=== PATIENT | male | born 1960 | race Caucasian/White ===

== ENCOUNTER 2018-05-22 17:06 | Emergency (ER) | payer BC ==
--- NOTE | 2018-05-22 17:16 | EDPHY ---
HPI/HX/ROS/PE/MDM Narrative: CHIEF COMPLAINT: Stroke alert HPI: The patient is a 58-year-old male who arrives by emergent ambulance as a stroke alert. Per paramedics, the patient was rock climbing when he suffered a minor fall. Following this fall, his [employer] noted that he had a left- sided facial droop and possibly some left upper extremity weakness. Ambulance was called. Symptoms began at 4:00 p.m.. No other injuries noted. REVIEW OF SYSTEMS: Aside from elements discussed in the HPI, a comprehensive 10-point review of systems was reviewed and is negative. PMH: No history of stroke, traumatic brain injury or known cardiac disease. SOCIAL HISTORY: Denies alcohol or drug abuse. PHYSICAL EXAM: General:Patient is alert, in no acute distress. ENT:Eyes are normal to inspection. ENT inspection normal. Neck: Normal inspection. Full range of motion. Respiratory:No respiratory distress. Breath sounds normal bilaterally. Cardiovascular: Regular rate and rhythm. Strong peripheral pulses. Normal cap refill. Abdomen:The abdomen is nontender to palpation. There are no peritoneal signs. There are normal bowel sounds. Back: Normal to inspection. No tenderness to palpation. Skin: Normal color. No rash. Warm and dry. Extremities: Normal appearance. Full range of motion. Neuro: Oriented x3. Left-sided facial droop. Mild pronator drift on left. Primary weakness is in hand. Able to raise left arm up against gravity. ED Course: 1724: [facility] has been consulted but has not yet beamed in. CT non con was read by Dr. Nicole as negative for bleed. Positive for subacute posterior right frontal encephalomalacia possibly due to ischemia. 1726: EKG shows normal sinus rhythm, no acute ST changes. 1730: Dr. Pike from [facility] now on robot. 1738: Dr. Pike has examined patient and she recommends IV tPA now followed by CTA. She discussed risks and benefits of tPA with patient and family separately but I reviewed this with them, as well as risk of potentially life- threatening intracranial bleeding, and patient and family would like to continue with tPA plan. tPA ordered and being mixed. 1820: I was notified by Dr. Nicole that the CT a is positive for an occluded right MCA. I have asked for the neurologist to be immediately re-contacted and have placed the helicopter on standby. 1830: I spoke to Dr. Pike and informed her of CTA results. She recommends and accepts patient for emergent transfer to [facility] for possible thrombectomy. I discussed this with patient and family and they are in agreement with plan. On re-eval, patient's symptoms are consistent but possibly somewhat worse. His LUE weakness is worse but he is alert and conscious. I spent a total of 90 minutes of critical care time in obtaining history, performing a physical exam, bedside monitoring of interventions, collecting and interpreting tests and discussion with consultants but not including time spent performing procedures. Organ system at risk is neurologic. - Data Points Imaging Results: Imaging Impressions Head CT 05/22/18 17:08 Impression: 1. Negative. No acute intracranial hemorrhage or evidence of acute cortical ischemia. 2. Subacute versus old infarction with associated encephalomalacia involving the posterior right frontal lobe. Findings discussed with Emergency Department physician, Dr. Otis Landeros on May 22, 2018 at 1724 hours. Imaging: Discussed imaging studies w/ on call Radiologist, I viewed and interpreted images myself Laboratory Results: Laboratory Results 05/22/18 17:16 05/22/18 17:16 05/22/18 05/22/18 05/22/18 17:19 17:16 17:16 WBC 9.39 10^3/uL 10^3/uL (3.80-9.50) RBC 5.79 10^6/uL 10^6/uL (4.40-6.38) Hgb 17.5 g/dL g/dL (13.7-17.5) POC Hgb Hct 51.5 % H % (40.0-51.0) POC Hct MCV 88.9 fL fL (81.5-99.8) MCH 30.2 pg pg (27.9-34.1) MCHC 34.0 g/dL g/dL (32.4-36.7) RDW 13.8 % % (11.5-15.2) Plt Count 697 10^3/uL H 10^3/uL (150-400) MPV 9.3 fL fL (8.7-11.7) Neut % (Auto) 78.2 % H % (39.3-74.2) Lymph % (Auto) 13.2 % L % (15.0-45.0) [place] % (Auto) 6.6 % % (4.5-13.0) Eos % (Auto) 0.7 % % (0.6-7.6) Baso % (Auto) 1.1 % % (0.3-1.7) Nucleat RBC Rel Count 0.0 % % (0.0-0.2) Absolute Neuts (auto) 7.34 10^3/uL H 10^3/uL (1.70-6.50) Absolute Lymphs (auto) 1.24 10^3/uL 10^3/uL (1.00-3.00) Absolute Monos (auto) 0.62 10^3/uL 10^3/uL (0.30-0.80) Absolute Eos (auto) 0.07 10^3/uL 10^3/uL (0.03-0.40) Absolute Basos (auto) 0.10 10^3/uL 10^3/uL (0.02-0.10) Absolute Nucleated RBC 0.00 10^3/uL 10^3/uL (0-0.01) Immature Gran % 0.2 % % (0.0-1.1) Immature Gran # 0.02 10^3/uL 10^3/uL (0.00-0.10) POC Sodium Sodium 139 mEq/L mEq/L (135-145) POC Potassium Potassium 5.1 mEq/L mEq/L (3.5-5.2) POC Chloride Chloride 102 mEq/L mEq/L (97-110) Carbon Dioxide 24 mEq/l mEq/l (22-31) POC Total CO2 Anion Gap 13 mEq/L mEq/L (6-14) POC BUN BUN 19 mg/dL mg/dL (7-23) Creatinine 1.1 mg/dL mg/dL (0.7-1.3) POC Creatinine Estimated GFR > 60 Glucose 87 mg/dL mg/dL (70-100) POC Glucose Calcium 9.7 mg/dL mg/dL (8.5-10.4) POC Troponin I 0.01 ng/mL ng/mL (0.00-0.08) 05/22/18 17:14 WBC RBC Hgb POC Hgb 18.4 gm/dL H gm/dL (13.7-17.5) Hct POC Hct 54 % H % (40-51) MCV MCH MCHC RDW Plt Count MPV Neut % (Auto) Lymph % (Auto) [place] % (Auto) Eos % (Auto) Baso % (Auto) Nucleat RBC Rel Count Absolute Neuts (auto) Absolute Lymphs (auto) Absolute Monos (auto) Absolute Eos (auto) Absolute Basos (auto) Absolute Nucleated RBC Immature Gran % Immature Gran # POC Sodium 142 mEq/L mEq/L (135-145) Sodium POC Potassium 4.4 mEq/L mEq/L (3.3-5.0) Potassium POC Chloride 103 mEq/L mEq/L (97-110) Chloride Carbon Dioxide POC Total CO2 26 mEq/L mEq/L (22-31) Anion Gap POC BUN 20 mg/dL mg/dL (7-23) BUN Creatinine POC Creatinine 1.1 mg/dL mg/dL (0.7-1.3) Estimated GFR Glucose POC Glucose 99 mg/dL mg/dL (70-100) Calcium POC Troponin I Medications Given: Sodium Chloride (Ns) 1,000 mls @ 500 mls/hr IV EDNOW ONE PRN Reason: Protocol Stop: 05/22/18 19:37 Last Admin: 05/22/18 17:48 Dose: 1,000 mls Discontinued Medications Alteplase, Recombinant (Activase) 6.57868 mg 0.09 mg/kg (6.77604 mg) IV ONCE ONE PRN Reason: Protocol Stop: 05/22/18 17:39 Last Admin: 05/22/18 17:48 Dose: 6.06396 mg Alteplase, Recombinant (Activase) 55.03400 mg 0.81 mg/kg (55.65667 mg) IV ONCE ONE PRN Reason: Protocol Stop: 05/22/18 17:39 Last Admin: 05/22/18 17:48 Dose: 55.07946 mg Point of Care Test Results: Chemistry 05/22/18 05/22/18 17:19 17:14 POC Sodium 142 mEq/L mEq/L (135-145) POC Potassium 4.4 mEq/L mEq/L (3.3-5.0) POC Chloride 103 mEq/L mEq/L (97-110) POC Total CO2 26 mEq/L mEq/L (22-31) POC BUN 20 mg/dL mg/dL (7-23) POC Creatinine 1.1 mg/dL mg/dL (0.7-1.3) POC Glucose 99 mg/dL mg/dL (70-100) POC Troponin I 0.01 ng/mL ng/mL (0.00-0.08) ISTAT H&H 05/22/18 17:14 POC Hgb 18.4 gm/dL H gm/dL (13.7-17.5) POC Hct 54 % H % (40-51) General Initial Vital Signs: Initial Vital Signs Temperature (C) 36.8 C 05/22/18 17:07 Heart Rate 81 05/22/18 17:07 Respiratory Rate 16 05/22/18 17:07 Blood Pressure 118/74 05/22/18 17:07 O2 Sat (%) 96 05/22/18 17:07 O2 Delivery Mode Nasal Cannula O2 (L/minute) 2 Allergies/Adverse Reactions: No Known Allergies Allergy (Verified 05/22/18 17:24) Home Medications: Medication Instructions Recorded NK [No Known Home Meds] 05/22/18 Departure - Departure Disposition: Acute Care Hospital Not [facility] Clinical Impression: Acute ischemic stroke Condition: Critical Referrals: Patient,NotPresent [Unknown] - As per Instructions
[2018-05-22 17:23] LABS: PLATELET COUNT 697 10^3/uL (150-400)
[2018-05-22] MEDS ORDERED: ALTEPLASE 100 MG/100 ML VIAL IV ONE ×2 (17:38→17:40)
[2018-05-22] MEDS ORDERED: ALTEPLASE 1 MG/ML SYR IV ONE (17:38)
[2018-05-22] MEDS ORDERED: NS 1,000 ML IV ONE (17:38)
[2018-05-22] MEDS ORDERED: NS 50 ML IV ONE (17:38)
[2018-05-22 19:03] VITALS: BP 125/89
--- NOTE | 2018-05-25 15:16 | CPEKG ---
Test Reason : OPEN Blood Pressure : / mmHG Vent. Rate : 078 BPM Atrial Rate : 079 BPM P-R Int : 165 ms QRS Dur : 096 ms QT Int : 369 ms P-R-T Axes : 052 035 058 degrees QTc Int : 421 ms Sinus rhythm Confirmed by Otis Landeros ([id number] on 05/25/2018 3:16:05 PM Referred By: Otis Landeros Confirmed By:Otis Landeros
== END 2018-05-22 19:00 | disposition short-term general hospital (02) ==
LOC: EDUNIT#
DX: I63.9 Cerebral infarction, unspecified (principal); I66.01 Occlusion and stenosis of right middle cerebral artery; G93.89 Other specified disorders of brain; W17.89XA Other fall from one level to another, initial encounter; Y93.31 Activity, mountain climbing, rock climbing and wall climbing
CPT/HCPCS: 82435-PO; 82565-PO; 82947-PO; 84132-PO; 84295-PO; 84484-ER; 84520-PO; 85014-ER; J2997